=== PATIENT | male | born 1975 | race Caucasian/White ===

== ENCOUNTER 2023-08-25 00:32 | Emergency (ER) | payer BC, SELFPAY ==
[2023-08-25 00:35] VITALS: BP 131/75
[2023-08-25] MEDS: TYLENOL 1000 MG PO (01:05)
[2023-08-25] MEDS: VENTOLIN NEBULES 2.5 MG INH (01:09)
[2023-08-25 01:14] LABS: COVID-19 Antigen Negative (Negative)
--- NOTE | 2023-08-25 01:41 | ED.GENMED ---
History of Present Illness
General
Chief Complaint: Cold/Flu/URI Symptoms
Source: patient
Time Seen by Provider: 08/25/23 00:50
Travel History
Have you had any contact with someone who has COVID-19?: No
Do you have any symptoms of coronavirus? Fever > 100 degrees, chills, cough, shortness of breath, sore throat, loss of taste or smell, muscle aches, or headache?: No
History of Present Illness
History of Present Illness:
48-year-old male presenting emergency department for evaluation after he started to feel unwell Sunday evening into noting body aches, chills, cough, congestion, sore throat and generally feeling unwell, had progressive fevers and
shortness of breath earlier this evening with pulse ox dropping into the low 90s during coughing spells vomiting then come to the ER for further evaluation. Patient's and kids were sick about 2 weeks ago with the flu. Patient was recently on
a skiing trip with friends. Patient did get his COVID shot this year but did not get a flu vaccine.
Past History
Past History
ED Past Medical History: None
ED Past Surgical History: None
Social History
Tobacco: Non-smoker
Alcohol: Occasional
Drug: None
Personal:
Living: with family
Employment: Employed
Review of Systems
Review of Systems
All Other Systems: ROS reviewed and negative except as documented in HPI and ROS
Phy Exam
Physical Exam
Physical Exam:
GENERAL: Alert , ill-appearing but nontoxic, pulse ox persistently between 94 and 97% on room air
EYE: conjunctiva clear
Head: Normocephalic atraumatic
NECK: Supple,
ENT: mmm.
LUNGS: no acute respiratory distress, intermittent coughing noted
NEUROLOGICAL: Alert and oriented
SKIN: Warm and dry, skin intact.
MUSCULOSKELETAL: well perfused.
PSYCH: Normal and appropriate interaction.
Scores
Heart Failure Risk
Heart Failure Risk Score: Not Applicable
Heart Score for Chest Pain Patients
STEMI patient?: Not applicable
Withdrawal Assessment of Alcohol
Withdrawal Assessment Completed?: Not applicable
Course
Orders/Labs/Results
Orders:
Orders
08/25/23 00:45
COVID-19 Antigen Urgent
Source: Nasal Swab
Influenza A+B Rapid Molecular Urgent
[facility] Source: Nasal Swab
Specimen Description:
08/25/23 00:50
Acetaminophen [Tylenol] 1,000 mg PO NOW STA
08/25/23 01:04
Albuterol Nebs [Ventolin Nebules] 2.5 mg INH R NOW STA
08/25/23 01:41
Oseltamivir Phosphate [Tamiflu] 75 mg PO NOW STA
Vital Signs
Initial and Last Documented VS:
Initial Vital Signs
Temp Pulse Resp BP Pulse Ox
102.6 F H 92 28 131/75 96
08/25/23 00:35 08/25/23 00:35 08/25/23 00:35 08/25/23 00:35 08/25/23 00:35
Last Documented Vital Signs
Temp Pulse Resp BP Pulse Ox
102.6 F H 92 28 131/75 96
08/25/23 00:35 08/25/23 00:35 08/25/23 00:35 08/25/23 00:35 08/25/23 01:02
MDM/Problems Addressed
Differential Diagnosis Includes:
COVID, flu, other viral etiology, pneumonia
MDM/Problems Addressed:
48-year-old male present emergency department for cold and flulike symptoms x 2-1/2 to 3 days. 102.6 fever on arrival here. Pulse ox persistently around 95% on room air. COVID and flu testing was ordered from triage and patient ultimately tested
positive for influenza A. Discussed supportive care measures, patient would like to be started on Tamiflu, patient noting that his friend gave him an inhaler and had significant relief with this so is requesting breathing treatment here. Albuterol
neb given. Will send patient home with an albuterol inhaler for his own personal use. Patient aware of return precautions but otherwise stable for discharge home.
*Pulse Oximetry
Patient hypoxic: no
*Critical Care Note
Total Time (30-74mins, 75-104mins- exclusive of procedures): Not Applicable
ED Attending Note
-
Portions of this chart may have been created with voice recognition software.� Occasional wrong word or��sound alike� substitutions may have occurred due to the inherent limitations of voice recognition software.
Discharge Plan
Departure
Patient Disposition: Home (Routine Discharge)
Date of Disposition: 08/25/23
Time of Disposition: 01:41
Patient with high blood pressure during this ER visit?: No
Discharge Problem:
Influenza A
Instructions: Flu, Adult (DC)
Prescriptions:
New
oseltamivir [Tamiflu] 75 mg capsule
75 mg PO BID Qty: 9 0RF
albuterol sulfate 90 mcg/actuation HFA aerosol inhaler
2 puff inhalation Q6H PRN (Reason: shortness of breath or wheezing) Qty: 6.7 0RF
Interventions
Interventions:
*Risk Screen - Suicide Last Done: 08/25/23 01:10
*General Assessment Last Done: 08/25/23 01:11
*Neglect/Abuse Screening Last Done: 08/25/23 01:10
*ED COVID-19 Vaccine History Last Done: 08/25/23 00:35
ED- Pulmonary Assessment Last Done: 08/25/23 01:02
[2023-08-25] MEDS: TAMIFLU 75 MG PO (01:48)
== END 2023-08-25 01:58 | disposition home or self-care (01) ==
LOC: EMR 00:32
PROVIDERS: Emergency Medicine; EMERGENCY PHYSICIAN Emergency Medicine; FAMILY PHYSICIAN Family Medicine Sports Medicine
DX: J10.1 Influenza due to other identified influenza virus with other respiratory manifestations (principal)
CPT/HCPCS: 99283; 94640; 87502; 87811